=== PATIENT | female | born 1970 | race Caucasian/White ===

== ENCOUNTER 2018-06-13 18:02 | Emergency (ER) | payer OTHER ==
[~2018-06-13] VITALS: Ht 165.1 cm; Wt 57.1 kg
[2018-06-13 18:15] VITALS: BP 137/91; PULSE 92; RESP 18; Ht 165.1 cm; Wt 57.1 kg
[2018-06-13] MEDS ORDERED: AMOX1TAB10 PO (20:29)
[2018-06-13] MEDS ORDERED: IBUP-1542 PO (20:29)
[2018-06-13] MEDS ORDERED: ACET-141 PO (20:29)
[2018-06-13] MEDS ORDERED: D-ME118S24 PO (20:29)
--- NOTE | 2018-06-13 20:35 | ERD ---
ER Documentation Chief Complaint Chief Complaint bilateral ear pain sorethroat & blisters on tongue x3 days HPI 48yo female presents for left ear pain x2 days. Pain is rated 10/10 constant, described as a throbbing sensation. She also admits to fever, sore throat, cough, runny nose. She states that she been taking the promethazine with codeine which has had leftover medication from a prior doctor's visit and states that it has been. She also states that she has headache on the left side rated 6 out of 10. Denies chest pain or shortness of breath, denies abdominal pain, nausea, vomiting. ROS All systems reviewed and are negative except as per history of present illness. Medications Home Meds Active Scripts Amoxicillin/Potassium Clav (Amox-Clav 875-125 mg Tablet) 875-125 mg Tab, 1 TAB PO BID for otitis media for 7 Days, #14 TAB Prov:CLEO AGUAYO 06/13/18 Acetaminophen* (Acetaminophen*) 500 MG Extra Strength Tablet, 500 MG PO Q4H PRN for PAIN AND OR ELEVATED TEMP, #30 TAB Prov:CLEO AGUAYO 06/13/18 Ibuprofen* (Motrin*) 600 Mg Tab, 600 MG PO Q6H PRN for PAIN AND OR ELEVATED TEMP, #30 TAB Prov:CLEO AGUAYO 06/13/18 D-Methorphan Hb/P-Epd HCl/Bpm (Fmtczklilt-Jztcutfqfoc-Ax Syr) 118 Ml Syrup, 5 ML PO Q4H PRN for COUGH for 10 Days, #1 BOTTLE Prov:CLEO AGUAYO 06/13/18 Allergies Allergies: Coded Allergies: No Known Allergy (Unverified , 06/13/18) PMhx/Soc Medical and Surgical Hx: pt denies Medical Hx, pt denies Surgical Hx Hx Alcohol Use: No Hx Substance Use: No Hx Tobacco Use: No Smoking Status: Never smoker Physical Exam Vitals Vital Signs Date Temp Pulse Resp B/P (MAP) Pulse Ox O2 O2 Flow FiO2 Time Delivery Rate 06/13/18 99.5 92 18 137/91 98 18:15 (106) Physical Exam Const: No acute distress Head: Atraumatic Eyes: Normal Conjunctiva ENT: Left tympanic membrane with some erythema and bulging noted, right tympanic membrane intact, nose and Mouth examination normal, no tonsillar swelling or exudate noted Neck: Full range of motion. No meningismus. Resp: Clear to auscultation bilaterally, no wheezing, rales, rhonchi Cardio: Regular rate and rhythm, no murmurs Skin: No petechiae or rashes Ext: No cyanosis, or edema Neur: Awake and alert Psych: Normal Mood and Affect Procedures/MDM Medical Decision Making: Differential diagnosis includes but not limited to upper respiratory infection, pneumonia, sepsis, meningitis, influenza, otitis media. Patient appeared well on physical examination, nontoxic appearing. Lungs were clear to auscultation bilaterally. There is low suspicion for pneumonia, sepsis, meningitis. Physical examination consistent with a left otitis media Patient given prescription for supportive medication(s) as well as Augmentin.. Patient advised to follow up with PCP in 1-2 days. Patient advised to return to ED for new or worsening symptoms. Patient stable on discharge from the ED. Disclaimer: Inadvertent spelling and grammatical errors are likely due to EHR/dictation software use and do not reflect on the overall quality of patient care. Also, please note that the electronic time recorded on this note does not necessarily reflect the actual time of the patient encounter. Departure Diagnosis: Primary Impression: Left otitis media Otitis media type: unspecified Qualified Codes: H66.92 - Otitis media, unspecified, left ear Condition: Fair Patient Instructions: Otitis Media, Abx Tx (Adult) Additional Instructions: Call your primary care doctor TOMORROW for an appointment during the next 1-2 days.See the doctor sooner or return here if your condition worsens before your appointment time. CLEO AGUAYO DO Jun 13, 2018 20:35
== END 2018-06-13 20:48 | disposition home or self-care (01) ==
LOC: FTE 18:02
DX: H66.92 Otitis media, unspecified, left ear (principal)
CPT/HCPCS: 99283